=== PATIENT | male | born 1940 ===

== ENCOUNTER 2022-08-05 12:42 | Inpatient (IN) | payer MEDICARE, OTHER, SELFPAY ==
[2022-08-05] VITALS (21 sets, daily range): BP systolic 115–140; BP diastolic 70–98; PULSE 83–113; RESP 13–22; TEMP 36.3–36.9; O2SAT 95–98; BMI 29.5
--- NOTE | ~2022-08-05 | XR_ITS ---
EXAMINATION: XR chest 1V portable 08/06/2022 08:20 INDICATION: Status post FL. PROCEDURE: AP portable chest COMPARISON: 08/05/2022 FINDINGS: The lungs are clear. The cardiomediastinal silhouette is within normal limits. There are no pleural effusions. There is no pneumothorax suspected. Minimal left basilar atelectasis. IMPRESSION: 1: NO ACUTE CARDIOPULMONARY DISEASE. Reviewed, dictated and finalized at location A.
--- NOTE | ~2022-08-05 | CT_ITS ---
EXAMINATION: CT brain wo con DATE: 08/05/2022 12:48 INDICATION: Status post fall. Head injury. TECHNIQUE: Computed tomography (CT) of the head was performed without intravenous contrast. The dose- length product was 681.00 mGy-cm. Automated exposure control and iterative reconstruction technique w ere employed. COMPARISON: None FINDINGS: There is a large arachnoid cyst involving the left frontal, parietal and temporal locations with significant mass effect on the adjacent parenchyma. No ventriculomegaly. Mild midline shift to the right. There are scattered mild periventricular and subcortical white matter changes, most likely related to small vessel ischemic disease (microangiopathy). There is intracranial atherosclerosis. P aranasal sinuses and mastoids are pneumatized. No acute infarction, hemorrhage. IMPRESSION: 1. Large left hemispheric arachnoid cyst with mass effect on the adjacent parenchyma causing mild mid line shift to the right. Reviewed, dictated and finalized at location A. IMPRESSION: 1. Large left hemispheric arachnoid cyst with mass effect on the adjacent paren chyma causing mild midline shift to the right.
--- NOTE | ~2022-08-05 | XR_ITS ---
XR chest 1V portable 08/05/2022 12:29 Indication: STEMI Procedure: AP portable chest Comparison: No prior studies for comparison. Findings: Heart size is normal for technique. Bibasilar atelectasis. No focal pneumonia, edema, pleur al effusion or pneumothorax. No acute osseous abnormality. Impression: 1: Bibasilar atelectasis. Reviewed, dictated and finalized at location A. Impression: 1: Bibasilar atelectasis.
--- NOTE | 2022-08-05 12:17 | ECG_ITS ---
Measurements Intervals [place] Rate: 99 P: 5 ND: 185 QRS: -18 QRSD: 105 T: 73 QT: 328 QTc: 423 Interpretive Statements SINUS RHYTHM ATRIAL PREMATURE COMPLEX LOW QRS VOLTAGE IN PRECORDIAL LEADS ANTEROLATERAL ST ELEVATION MYOCARDIAL INJURY- ACUTE BASELINE ARTIFACT- V1, V6 ABNORMAL ECG NO PREVIOUS ECG AVAILABLE FOR COMPARISON Electronically Signed On 08-05-2022 13:11:27 CDT by Carlos Burt D.O.
[2022-08-05 12:32] LABS: Basophils Percent Auto 0.3 % (0.2-1.2); Eosinophils Percent Auto 0.1 % (0-4.4); Hematocrit 44.6 % (42.0-52.0); Immature Granulocyte Absolute 0.03 K/mm3 (0.00-0.031); Immature Granulocyte Percent A 0.3 % (0-0.5); Lymphocytes Absolute Auto 1.17 K/mm3 (0.9-3.2); Lymphocytes Percent Auto 10.4 % (18.3-44.2); Mean Corpuscular HGB Conc 33.6 g/dl (32-36); Mean Corpuscular Hemoglobin 32.9 pg (26-34); Mean Corpuscular Volume 97.8 fl (80-100); Mean Platelet Volume 9.3 fl (7.4-10.4); Monocytes Absolute Auto 1.5 K/mm3 (0.1-0.6); Monocytes Percent Auto 13.1 % (2.6-8.5); Neutrophils Absolute Auto 8.5 K/mm3 (1.3-6.7); Neutrophils Percent Auto 75.8 % (45.5-73.1); Platelet Count Result 237 k/mm3 (150-375); Red Blood Count 4.56 M/mm3 (4.6-6.20); Red Cell Distribution Width 13.4 % (11.5-14.5); White Blood Count 11.2 K/mm3 (4.5-10.0)
[2022-08-05 12:42] LABS: Alanine Aminotransferase 35 U/L (6-50); Alkaline Phosphatase 62 U/L (38-126); Anion Gap 6 mmol/L (8-16); Aspartate Amino Transferase 92 U/L (17-59); Bilirubin,Total 1.4 mg/dL (0.2-1.3); Blood Urea Nitrogen 11 mg/dL (9-20); Calcium 8.5 mg/dL (8.4-10.2); Carbon Dioxide 30 mmol/L (22-30); Chloride 100 mmol/L (98-107); Cholesterol 137 mg/dL (0-200); Estimated CRCL calculation 71 ml/min; Estimated Glomerular Filt Rate > 60; Glucose 115 mg/dL (65-110); HDL Direct 44 mg/dL; Potassium 3.5 mmol/L (3.4-5.0); Sodium 136 mmol/L (137-145); Triglycerides 70 mg/dL (<150)
[2022-08-05 12:51] LABS: INR 1.1; Partial Thromboplastin Time 36.6 SECONDS (22.3-36.8); Prothrombin Time 14.9 Seconds (11.1-14.7)
[2022-08-05 12:53] LABS: LDL Cholesterol Direct 74 mg/dL
--- NOTE | 2022-08-05 13:37 | ED.GENADULT ---
HPI - General Adult General Chief complaint: Fall Stated complaint: ON FLOOR, EMS CALLED STEMI Source: patient, family, EMS and RN notes reviewed Mode of arrival: EMS Limitations: other (confusion) History of Present Illness HPI narrative: This is an 82 year old male with history of hypertension and brain cyst who presents from Assisted living facility who presents for evaluation of possible heart attack. EMS states patient was found on the floor by staff. IT is reported that he is normally alert and oriented x 4 and he seems confused today. Patient states he thinks he was trying to get up and it became weak. He states he has been weak since yesterday. EMS performed EKG in the field and it shows ST elevation in V2-V4. Patinet denies chest pain, shortness of breath, headache, dizziness, nausea or vomiting. He denies heart disease. EMS gave patient aspirin 324mg PO. STEMI activated from the field. Cardiology notified prior to patient arrival Related Data Home Medications Medication Instructions Recorded Confirmed No Home Medications 08/05/22 08/05/22 Allergies Allergy/AdvReac Type Severity Reaction Status Date / Time No Known Allergies Allergy Verified 08/05/22 12:26 Review of Systems Constitutional: Constitutional: Reports weakness Cardiovascular: Cardiovascular: Denies syncope, Denies rapid heart rate, Denies irregular heart rhythm, Denies leg edema and Denies dyspnea Respiratory: Respiratory: Denies chest congestion, Denies hemoptysis, Denies excessive phlegm production and Denies dyspnea Gastrointestinal: Gastrointestinal: Denies abdominal pain, Denies hematochezia, Denies diarrhea and Denies vomiting Genitourinary: Genitourinary: Denies hematuria, Denies dysuria, Denies penile discharge and Denies testicular pain Musculoskeletal: Musculoskeletal: Denies joint swelling, Denies loss of height and Denies muscle weakness Neurologic: Denies syncope, Denies focal weakness and Denies weakness PMFSH Past Medical History Medical History Arachnoid cyst Hypertension Surgical History Surgical History Surgical history unknown Social History Social History (Updated 08/05/22 @ 14:46 by Jonathan Sheikh MD) Smoking status: Unknown if ever smoked Alcohol intake: never Substance use: never Substance use type: does not use Spiritual care concerns: No Exam Const: General: no acute distress and alert Orientation/consciousness: patient oriented x3 HENMT: Head: normal to inspection Mouth: Yes Normal oral and palatal mucosa present and Yes lip normal Eyes: Pupils: Equal, round and reactive pupils present EOM: EOMs intact bilaterally Chest: Chest palpation & inspection: normal inspection of the chest Resp: Effort & Inspection: normal respiratory effort Auscultation: clear to auscultation bilaterally Cardio: Rate: regular rate Rhythm: regular rhythm Heart sounds: no murmurs GI: GI Palp: Yes Soft to palpation, No Tenderness to palpation present (GI), No Guarding due to palpation present (GI) and No Rigid due to palpation Auscultation: normal bowel sounds Skin: General skin exam: normal color Rashes: no rashes Wounds: no wounds Neuro: General: patient oriented x3, moves all extremities and CN's II-XI intact bilaterally Psych: Mental Status: mental status grossly normal Affect: normal affect Attitude: cooperative Course Course Emergency Course: Patient arrived to ER in no distress. EKG performed on arrival and does continue to show STEMI. Patient's paperwork reports he is DNR- I spoke with daughter Mona Vivar who is POA and she wants to precede with quality assurance qa lab technician regardless of risk. I discussed with Cardiology. Dr. Sheikh [address]Patient given heparin 4000 and metoprolol 25 mg PO 1250- PAtien taken to quality assurance qa lab technician. Dr. Sheikh request neurosurgery consultation regarding arachnoid
--- NOTE | 2022-08-05 14:32 | PM.IMHP ---
H&P: HPI History of Present Illness Date/Time: 08/05/22 14:32 Chief Complaint: Brought to the hospital with altered mental status Narrative: 82 year old male with history of hypertension and arachnoid cyst. Patient was brought to [facility] Emergency Room on 08/05/2022 via EMS from Assisted living facility after he was apparently found on the floor by the staff with altered mental status. Baseline mental status is reported to be alert oriented.? Based on ER notes, patient stated he thinks he was trying to get up and became weak. He reports generalized weakness.? ? EMS and emergency room EKG on my personal evaluation showed sinus rhythm with ST elevation in the anteroseptal leads.? ? Patinet denied chest pain, shortness of breath, headache, dizziness, nausea or vomiting. ? No known prior cardiac history. Patient was given aspirin by EMS. I was called by the ER physician about patient's presentation and EKG findings. Patient was reportedly DNR status. Emergency room physician spoke with patient's daughter-POA and code status was changed to full code for the duration of the procedure. CT head showed large left hemispheric arachnoid cyst with mass effect on the adjacent parenchyma causing mild midline shift to the right. After conversation with the emergency room physician, the ER physician call the Neurosurgery and based on the information provided, it was deemed okay to proceed with cardiac catheterization. Patient was taken to the cardiac catheterization lab. The procedure was technically challenging. Due to the tortuosity in the iliac arteries, a long sheath was placed. Despite numerous attempts, the coronary arteries could not be selectively engaged due to the ectatic/ aneurysmal aorta. Multiple guide catheters were utilized and the catheter length felt short of the coronary ostia. Nonselective coronary angiogram showed patent left main coronary artery, patent left circumflex artery, lad could not be visualized adequately. RCA could not be engaged. Left ventriculogram showed Apical dyskinesia, hyperkinetic basal segments, ejection fraction about 50%. LVEDP was elevated at 19 mmHg. Radial access was taking, and again there was tortuosity in the right brachiocephalic trunk and catheter length was inadequate to reach the coronary ostia . At this time, procedure was aborted. Patient remained hemodynamically stable and did not complain of chest pain. Review of Systems Review of Systems: As per HPI, other review of system is difficult to obtain as patient presented with altered mental status. At the time of evaluation, he denied any ongoing symptoms of chest pain or shortness of breath. He reports generalized fatigue. Information was gathered from the patient, from the ER staff and review of the chart. [facility] Past Medical History Medical History Arachnoid cyst Hypertension Surgical History Surgical History Surgical history unknown Social History Social History (Updated 08/05/22 @ 14:46 by Jonathan Sheikh MD) Smoking status: Smoker, status unknown Alcohol intake: unknown Substance use: never Meds Home Medications and Allergies Allergies Allergy/AdvReac Type Severity Reaction Status Date / Time No Known Allergies Allergy Verified 08/05/22 12:26 Vital Signs Vital Signs - 24 hr 08/05/22 12:14 08/05/22 12:27 Temperature 36.6 C Pulse Rate 101 H 99 Respiratory Rate 22 H 20 Blood Pressure 140/98 H 131/75 Pulse Oximetry 95 95 Oxygen Delivery Room Air Exam Narrative: PHYSICAL EXAMINATION: GENERAL: Alert, somewhat confused, no acute distress MENTAL STATUS: affect appropriate to mood EYES: Extraocular movements intact, no pallor EARS: External ears appear normal, hearing grossly normal NOSE: Normal and patent, no discharge MOUTH: Mucous membranes moist, tongue normal
--- NOTE | 2022-08-05 14:50 | WPDCARDPROC ---
Cardiac Cath Procedure Note Date of procedure:: 08/05/22 Performing physician:: Jonathan Sheikh MD Procedure Procedure performed:: LEFT HEART CATHETERIZATION AND CORONARY ANGIOGRAM REPORT DATE OF PROCEDURE: 08/05/2022 INDICATION FOR PROCEDURE: altered mental status, ST segment abnormality/ elevation in the anteroseptal leads BRIEF CLINICAL HISTORY: 82 year old male with history of hypertension and? arachnoid cyst. Patient was brought to [facility] Emergency Room on 08/05/2022 via EMS from Assisted living facility? after he was apparently found on the floor by the staff with altered mental status.? Baseline mental status is reported to be alert oriented.? Based on ER notes, patient stated he thinks he was trying to get up and became weak.? He reported generalized weakness.? ? EMS? and emergency room EKG?showed sinus rhythm with ST elevation in the? anteroseptal leads.? ? Patinet denied chest pain, shortness of breath, headache, dizziness, nausea or vomiting. ?? No known prior cardiac history.? Patient was given aspirin by EMS. I was called by the ER physician about patient's presentation and EKG findings.? Patient was reportedly DNR status.? Emergency room physician spoke with patient's daughter-FRAN and code status was changed to full code for the duration of the procedure. CT head showed?large left hemispheric arachnoid cyst with mass effect on the adjacent parenchyma causing mild midline shift to the right.? After conversation with the emergency room physician, the ER physician call the Neurosurgery and based on the information provided, it was deemed okay to proceed with cardiac catheterization.??Patient was taken to the cardiac catheterization lab.? PROCEDURES PERFORMED: 1. Left heart catheterization- non selective left coronary angiogram; left ventriculogram and hemodynamic assessment 2. Deployment of Mynx vascular closure device at right common femoral artery access site 3. Moderate sedation-CPT code 95826 MODERATE SEDATION: Midazolam 0.5 mg; fentanyl 25 mcg; Start time 1317 , Stop time 1430 ; Total [id number] time 73 minutes; Karely Pa RN was trained observer for moderate sedation. ACCESS SITE: Right common femoral artery and right radial artery PROCEDURE NOTE AND FINDINGS: patient was emergently brought to catheterization lab and prepped and draped in a usual sterile manner. After local anesthesia with lidocaine, right common femoral artery access was taken with micropuncture needle followed by insertion of a 6 Ukrainian sheath. The procedure was technically challenging.? Due to the tortuosity in the iliac arteries, 6 Ukrainian short sheath was taken out and a long 65 cm sheath was placed.? Despite numerous attempts, the coronary arteries could not be selectively engaged due to the ectatic/ aneurysmal aorta.? Multiple guide catheters were utilized and the catheter length felt short of the coronary ostia.? Nonselective coronary angiogram showed patent left main coronary artery, patent left circumflex artery, left anterior descending artery could not be visualized adequately.? RCA? could not be engaged. Longer length diagnostic and guide catheters not available in the process laboratory specialist. 5 Ukrainian pigtail catheter was advanced the LV cavity and Left ventriculogram showed? Apical dyskinesia, hyperkinetic basal segments, ejection fraction about 50%.? LVEDP was elevated at 19 mmHg.? Radial access was taken, and there was tortuosity in the right brachiocephalic trunk and catheter length was inadequate to reach the coronary ostia .? At this time, procedure was aborted. Mynx vascular closure device was deployed at right common femoral artery access site and radial band was placed in the right radial access site.? Patient remained hemodynamically stable and did not complain of chest pain. CONCLUSIONS: 1. Technically challenging cardiac catheterization due to iliac tortuosity and ectatic/ aneurysmal aorta - Available catheter lengths d
--- NOTE | 2022-08-05 15:35 | PM.TDS ---
Transfer Discharge Sum: Prov Provider Date of admission: 08/05/2022 Attending physician on admission: Jonathan Sheikh Consults: 08/05/22 Consult to Physician Routine Comment: Consulting Provider: Eduard Eckert Reason for consultation: arachnoid cyst Has provider been notified: Yes Attending physician on discharge: Jonathan Sheikh Discharging clinician: Jonathan Sheikh Anticipated date of transfer: 08/05/22 Receiving physician/facility: [facility] interventional cardiology DS: Admitting Diagnosis Discharge Date ACS-anteroseptal ST-elevation WI Admitting Diagnosis ACS-anteroseptal ST-elevation WI DS: Discharge Diagnosis Discharge Diagnosis Plan 82 year old male with history of hypertension and arachnoid cyst.? Patient was brought to [facility] Emergency Room on 08/05/2022 via EMS from Assisted living facility? after he was apparently found on the floor by the staff with altered mental status.? Baseline mental status is reported to be alert oriented.? Based on ER notes, patient stated he thinks he was trying to get up and became weak.? He reports generalized weakness.? ? EMS? and emergency room EKG? on my personal evaluation showed sinus rhythm with ST elevation in the? anteroseptal leads.? ? Patinet denied chest pain, shortness of breath, headache, dizziness, nausea or vomiting. ?? No known prior cardiac history.? Patient was given aspirin by EMS. I was called by the ER physician about patient's presentation and EKG findings.? Patient was reportedly DNR status.? Emergency room physician spoke with patient's daughter-POA and code status was changed to full code for the duration of the procedure. CT head showed?large left hemispheric arachnoid cyst with mass effect on the adjacent parenchyma causing mild midline shift to the right.? After conversation with the emergency room physician, the ER physician called the Neurosurgery and based on the information provided, it was deemed okay to proceed with cardiac catheterization.??Patient was taken to the cardiac catheterization lab.? ?The procedure was technically challenging.? Due to the tortuosity in the iliac arteries, a long sheath was placed.? Despite numerous attempts, the coronary arteries could not be selectively engaged due to the ectatic/ aneurysmal aorta.? Multiple guide catheters were utilized and the catheter length fell short of the coronary ostia.? Nonselective coronary angiogram showed patent left main coronary artery, patent left circumflex artery, lad could not be visualized adequately.? RCA? could not be engaged. Left ventriculogram showed? Apical dyskinesia, hyperkinetic basal segments, ejection fraction about 50%.? LVEDP was elevated at 19 mmHg.? Radial access was taken, and again there was tortuosity in the right brachiocephalic trunk and catheter length was inadequate to reach the coronary ostia .? At this time, procedure was aborted.? Patient remained hemodynamically stable and did not complain of chest pain. After completion of attempted procedure, I spoke with patient's family including his 2 daughters. They said they would like to change patient's DNR status to full code and would like to transfer the patient to another facility where adequate length guide catheters are available. Patient's daughter works at [employer], and they preferred to have patient transferred to [facility]. I called the [facility] transfer line, and spoke with Dr. Garcia from intervention Cardiology. Patient will be transferred to [facility] for further cardiovascular care. Transfer Discharge Sum: Med Medications Active and Home Medications: Active Medications Aspirin (Aspirin 81 Mg Enteric Tablet) 81 mg PO QAM EVA Atorvastatin Calcium (Atorvastatin 40 Mg Tablet) 40 mg PO DAILY EVA Enoxaparin Sodium (Enoxaparin 1 Mg/Kg) 100 mg SUB-Q Q12HR EVA Sodium Chloride (Normal Saline Iv) 1,000 mls @ 125 mls/hr IV CONT .Q8H ONE Stop: 08/05/22 23:04 Metoprolol Tartrate (Metoprolol Tartrate 12.5
--- NOTE | 2022-08-05 15:51 | ADMGEN ---
This patient, Gaurav Vivar, was admitted to Intensive Care Unit-2 at 1530 from critical access hospital. Patient/family oriented to hospital policies and general routines including ID bracelet, bed and alarms, visiting hours, pain management, procedures, bathroom and other care routines, personal items, smoking policy, room service/diet, and visiting hours. Information on how to activate the Rapid Response Team has been discussed. Patient/Family are encouraged to report perceived risks to care and to ask questions if they do not understand what they are told or what they should do.
[2022-08-05] MEDS: ENOXAPARIN 120 MG/0.8 ML SYRINGE 105 MG SUB-Q (16:00)
[2022-08-05] MEDS: SODIUM CHLORIDE 0.9% IV 1,000 ML 125 ML IV CONT (16:00)
--- NOTE | 2022-08-05 17:29 | PC.NURSE ---
Spoke with Alicia at [facility] transfer center, no bed available at this time.
--- NOTE | 2022-08-05 17:56 | PC.NURSE ---
[facility] flyer was given to patient.
[2022-08-05] MEDS: METOPROLOL TARTRATE 12.5 MG TABLET PO (20:34)
[2022-08-05] MEDS: TICAGRELOR 90 MG TABLET PO (20:34)
[2022-08-05] MEDS: diphenhydrAMINE HCl INJ 50 MG/ML VIAL 25 MG IV PUSH (23:41)
[2022-08-06] VITALS (7 sets, daily range): BP systolic 103–141; BP diastolic 57–84; PULSE 79–105; RESP 18–24; TEMP 36.6–36.8; O2SAT 94–100
[2022-08-06] MEDS: LORazepam INJ (*CRX) 2 MG/ML VIAL 0.5 MG IV PUSH (04:34)
[2022-08-06] MEDS: ENOXAPARIN 120 MG/0.8 ML SYRINGE 105 MG SUB-Q (04:49)
[2022-08-06] MEDS: ATORVASTATIN 40 MG TABLET PO (08:36)
[2022-08-06] MEDS: ASPIRIN 81 MG ENTERIC TABLET PO (08:36)
[2022-08-06] MEDS: TICAGRELOR 90 MG TABLET PO (08:36)
[2022-08-06] MEDS: METOPROLOL TARTRATE 12.5 MG TABLET PO (08:36)
--- NOTE | 2022-08-06 09:04 | PC.NURSE ---
Report given at bedside to [place] [facility] team. Patient to transfer to [facility] per EMS. Patient departed ICU department at 0900.
--- NOTE | 2022-08-06 09:11 | PC.NURSE ---
Called [facility] at 0910 and gave updated to CECILLE Pablo of patient most recent assessment, vitals, and medications given. Patient in route to [facility] per [facility].
== END 2022-08-06 09:00 | disposition short-term general hospital (02) | DRG 282 ==
LOC: ANHICU 08-08 10:54
PROVIDERS: General Practice; Admitting Provider Internal Medicine Cardiovascular Disease; Visit Provider Internal Medicine Cardiovascular Disease
PROC: 4A023N7 Measurement of Cardiac Sampling and Pressure, Left Heart, Percutaneous Approach (ICD-10-PCS; CPT 93452; principal; 2022-08-05 12:30)
PROC: 4A023N7 Measurement of Cardiac Sampling and Pressure, Left Heart, Percutaneous Approach (ICD-10-PCS; CPT 36140; 2022-08-05 12:30)
PROC: 4A023N7 Measurement of Cardiac Sampling and Pressure, Left Heart, Percutaneous Approach (ICD-10-PCS; 2022-08-05 12:30)
DX: I21.09 ST elevation (STEMI) myocardial infarction involving other coronary artery of anterior wall (principal); I10 Essential (primary) hypertension; G93.0 Cerebral cysts; Z66 Do not resuscitate
CPT/HCPCS: 36140; 36415; 70450; 71045; 80053; 80061; 84484; 85025; 85610; 85730; 86850; 86900; 86901; 93005; 93458; A9270; C1760; C1769; C1887; C1894; G0269; J1200; J1644; J1650; J2060; J7030; J7040